=== PATIENT | female | born 1950 | race Caucasian/White ===

== ENCOUNTER 2016-06-19 23:33 | Emergency (ER) | payer BC ==
[2016-06-20] MEDS ORDERED: DILAUDID 1 MG/ML AMP ONE (01:14)
[2016-06-20] MEDS ORDERED: ONDANSETRON 4 MG VIAL ONE ×2 (01:14→02:16)
[2016-06-20] MEDS ORDERED: KETOROLAC 30 MG/ML VIAL ONE (01:14)
[2016-06-20] MEDS ORDERED: DIPHENHYDRAMINE 50 MG/ML VIAL ONE (02:41)
[2016-06-20] MEDS ORDERED: PROMETHAZINE 25 MG/ML VIAL ONE (02:41)
[2016-06-20] MEDS ORDERED: SODIUM CHLORIDE 0.9% 50 ML IV ONE (02:42)
== END 2016-06-20 04:07 | disposition home or self-care (01) ==
LOC: ER 23:33
DX: N20.1 Calculus of ureter (principal); Z79.899 Other long term (current) drug therapy
CPT/HCPCS: 36415; 74176; 80053; 81001; 83690; 85025; 96365; 96375; 96376